=== PATIENT | female | born 1990 | race African-American/Black ===

== ENCOUNTER 2022-01-17 06:54 | Inpatient (IN) | payer BC ==
[2022-01-14 09:49] LABS: HEMATOCRIT 39.6 % (34.2-44.1); MEAN CORPUSCULAR HEMOGLOBIN 30.4 pg (28-32); MEAN CORPUSCULAR HGB CONC 32.8 g/dL (31-35); MEAN CORPUSCULAR VOLUME 92.7 fL (81-99); NEUTROPHILS % 53.3 % (38.7-80.0); PLATELET COUNT 278 x10e3/uL (140-360); RED BLOOD COUNT 4.27 x10e6/uL (3.6-5.1); RED CELL DISTRIBUTION WIDTH 12.9 % (11.7-14.4)
[2022-01-14 09:50] LABS: BASOPHILS % 0.4 % (0.0-1.0); EOSINOPHILS # (AUTO) 0.1 (0.0-0.4); EOSINOPHILS % 2.2 % (0.0-6.0); LYMPHOCYTES # (AUTO) 2.1 (1.0-3.2); LYMPHOCYTES % 38.9 % (18.0-39.1); MONOCYTES # (AUTO) 0.3 (0.2-0.8); MONOCYTES % 4.8 % (4.4-11.3); NEUTROPHILS # (AUTO) 2.9 (2.1-6.9)
[2022-01-17] VITALS (7 sets, daily range): BP systolic 143–146; BP diastolic 92–110
[~2022-01-17] VITALS: Ht 170.2 cm; Wt 176.0 kg
[~2022-01-17 06:54] MED LIST: SODIUM CHLORIDE 0.9% 50ML 100 ML ONE
[2022-01-17] MEDS ORDERED: BUPIVACAINE HCL 0.25% 10ML MPF VIAL INJ ONE (07:11)
[2022-01-17] MEDS ORDERED: FENTANYL CITRATE/PF 100MCG/2 ML INJ ONE (10:05)
[2022-01-17] MEDS ORDERED: LABETALOL HCL 0 ML ONE (10:10)
[2022-01-17] MEDS ORDERED: ONDANSETRON HCL INJ 2MG/ML 2ML 2 MG/ML VIAL ONE ×2 (10:14→13:17)
[2022-01-17] MEDS ORDERED: HYDROMORPHONE 1MG/1ML INJ ONE ×2 (10:32→10:53)
[2022-01-17] MEDS ORDERED: HYDRALAZINE HCL 20 MG/ML VIAL ONE (10:46)
[2022-01-17] MEDS ORDERED: HYDROCODONE/APAP 7.5MG-325MG 1 EA TAB PO PRN (11:30)
[2022-01-17] MEDS: LACTATED RINGER'S 1,000 ML INJ SCH ×2 (12:11→18:37)
[2022-01-17] MEDS: ONDANSETRON HCL INJ 2MG/ML 2ML 2 MG/ML VIAL IV PRN ×2 (12:11→18:11)
[2022-01-17] MEDS: Morphine 2mg Syringe 2 MG/ML SYR IV PRN ×6 (12:11→22:38)
[2022-01-17] MEDS ORDERED: SCOPOLAMINE 1.5 MG PATCH TOP ONE (12:30)
[2022-01-17] MEDS ORDERED: GLYCOPYRROLATE INJ 0.2 MG/ML VIAL ONE (13:17)
[2022-01-17] MEDS ORDERED: SUGAMMADEX SODIUM 200 MG/2 ML VIAL IV ONE (13:17)
[2022-01-17] MEDS ORDERED: ACETAMINOPHEN 1000 MG/100 ML IV ONE (13:17)
[2022-01-17] MEDS ORDERED: DEXAMETHASONE SOD PHOS INJ 4 MG/ML SDV ONE (13:17)
[2022-01-17] MEDS ORDERED: ROCURONIUM BROMIDE 10 MG/ML 5ML VIAL IV ONE (13:17)
[2022-01-17] MEDS ORDERED: SEVOFLURANE INHAL SOLN 250 ML PEN BTL ONE (13:17)
[2022-01-17] MEDS ORDERED: PROPOFOL IV EMULSION 10 MG/ML 20 ML VIAL ONE (13:17)
[2022-01-17] MEDS ORDERED: POVIDONE IODINE 0.05% 0.05 % ML PO ONE (13:17)
[2022-01-17] MEDS ORDERED: NEOSTIGMINE 1 MG/ML 10ML VIAL ONE (13:17)
[2022-01-17] MEDS ORDERED: LIDOCAINE HCL 2% LOCAL INJ 5 ML SDV VIAL INJ ONE (13:17)
[2022-01-17 14:24] LABS: BASOPHILS % 0.1 % (0.0-1.0); EOSINOPHILS % 0.1 % (0.0-6.0); HEMATOCRIT 40.6 % (34.2-44.1); HEMOGLOBIN 13.7 g/dL (12.0-16.0); LYMPHOCYTES # (AUTO) 0.7 (1.0-3.2); LYMPHOCYTES % 4.9 % (18.0-39.1); MEAN CORPUSCULAR HEMOGLOBIN 30.6 pg (28-32); MEAN CORPUSCULAR HGB CONC 33.7 g/dL (31-35); MEAN CORPUSCULAR VOLUME 90.6 fL (81-99); MONOCYTES # (AUTO) 0.1 (0.2-0.8); MONOCYTES % 0.5 % (4.4-11.3); NEUTROPHILS # (AUTO) 12.6 (2.1-6.9); NEUTROPHILS % 93.2 % (38.7-80.0); PLATELET COUNT 296 x10e3/uL (140-360); RED BLOOD COUNT 4.48 x10e6/uL (3.6-5.1)
[2022-01-17] MEDS ORDERED: ACETAMINOPHEN 325 MG TAB PO PRN ×2 (20:45→21:45)
[2022-01-17] MEDS ORDERED: ENOXAPARIN SOD INJ 40 MG/0.4 ML SYR SC SCH (22:00)
[2022-01-17] MEDS: ACETAMINOPHEN 325 MG TAB PO PRN ×2 (22:31→22:33)
[2022-01-18] VITALS: BP 147/90
[2022-01-18] MEDS: ONDANSETRON HCL INJ 2MG/ML 2ML 2 MG/ML VIAL IV PRN (02:21)
[2022-01-18] MEDS: LACTATED RINGER'S 1,000 ML INJ SCH (02:21)
[2022-01-18] MEDS: Morphine 2mg Syringe 2 MG/ML SYR IV PRN (02:21)
[2022-01-18] MEDS: ACETAMINOPHEN 325 MG TAB PO PRN (05:19)
[2022-01-18 05:39] LABS: BASOPHILS % 0.1 % (0.0-1.0); HEMATOCRIT 36.9 % (34.2-44.1); HEMOGLOBIN 12.6 g/dL (12.0-16.0); LYMPHOCYTES # (AUTO) 1.4 (1.0-3.2); LYMPHOCYTES % 13.3 % (18.0-39.1); MEAN CORPUSCULAR HEMOGLOBIN 30.5 pg (28-32); MEAN CORPUSCULAR HGB CONC 34.1 g/dL (31-35); MEAN CORPUSCULAR VOLUME 89.3 fL (81-99); MONOCYTES # (AUTO) 0.5 (0.2-0.8); MONOCYTES % 4.5 % (4.4-11.3); NEUTROPHILS # (AUTO) 8.3 (2.1-6.9); NEUTROPHILS % 81.5 % (38.7-80.0); PLATELET COUNT 296 x10e3/uL (140-360); RED BLOOD COUNT 4.13 x10e6/uL (3.6-5.1); RED CELL DISTRIBUTION WIDTH 12.7 % (11.7-14.4)
[2022-01-18 06:13] LABS: ALANINE AMINOTRANSFERASE 49 IU/L (0-55); ALBUMIN 3.5 g/dL (3.5-5.0); ALKALINE PHOSPHATASE 47 IU/L (40-150); ANION GAP 12.4 mmol/L (8-16); BLOOD UREA NITROGEN < 5 mg/dL (7-26); CALCIUM 8.9 mg/dL (8.4-10.2); CARBON DIOXIDE 25 mmol/L (22-29); CHLORIDE 103 mmol/L (98-107); CREATININE, SERUM 0.75 mg/dL (0.57-1.11); EST GLOMERULAR FILTRATION RATE 108 ML/MIN (60-); GLUCOSE 108 mg/dL (74-118); MAGNESIUM 1.7 MG/DL (1.3-2.1); POTASSIUM 3.4 mmol/L (3.5-5.1); SODIUM 137 mmol/L (136-145)
[2022-01-18 06:15] LABS: BUN/CREATININE RATIO 7 (6-25)
[2022-01-18 06:28] LABS: PHOSPHORUS 3.1 MG/DL (2.3-4.7)
[2022-01-18] MEDS ORDERED: POTASSIUM CHLORIDE 10MEQ EA PO ONE (06:30)
[2022-01-18] MEDS ORDERED: CLONIDINE HCL 0.1 MG TAB PO ONE (07:45)
[2022-01-18 08:01] VITALS: BP 147/100
== END 2022-01-18 09:52 | disposition home or self-care (01) | DRG 621 ==
LOC: OR 06:54 → PACU V 09:39 → MED/SURG 11:07
PROVIDERS: ADMIT Internal Medicine; ATTEND Internal Medicine
PROC: 0DB64Z3 Excision of Stomach, Percutaneous Endoscopic Approach, Vertical (ICD-10-PCS; principal; 2022-01-17 07:31)
DX: E66.01 Morbid (severe) obesity due to excess calories (principal); Z68.44 Body mass index [BMI] 60.0-69.9, adult; K76.0 Fatty (change of) liver, not elsewhere classified; I11.9 Hypertensive heart disease without heart failure; Z20.822 Contact with and (suspected) exposure to COVID-19
CPT/HCPCS: 36415; 80053; 81025; 83735; 84100; 85025; J0360; J0690; J1100; J1170; J1650; J2001; J2270; J2405; J2710; J3010; J7121; U0002

== ENCOUNTER 2022-10-27 20:28 | Emergency (ER) | payer BC ==
[~2022-10-27] VITALS: Ht 172.7 cm; Wt 158.8 kg
[2022-10-27] MEDS ORDERED: KETOROLAC TROMETHAMINE 30 MG/ML VIAL IV STA (21:18)
[2022-10-27] MEDS ORDERED: SODIUM CHLORIDE 0.9% 1000ML 1,000 ML IV SCH (21:30)
[2022-10-27] MEDS ORDERED: KETOROLAC TROMETHAMINE 30 MG/ML VIAL ONE (22:10)
[2022-10-27] MEDS ORDERED: SODIUM CHLORIDE 0.9% 1000ML 1,000 ML ONE (22:10)
[2022-10-27] MEDS ORDERED: DICYCLOMINE HCL20 MG PO (22:53)
[2022-10-27] MEDS ORDERED: NAPROSYN500 MG PO (22:53)
== END 2022-10-27 23:33 | disposition home or self-care (01) ==
LOC: FSED 20:37
DX: R19.7 Diarrhea, unspecified (principal); U07.1 COVID-19; R10.84 Generalized abdominal pain; E66.01 Morbid (severe) obesity due to excess calories; Z98.84 Bariatric surgery status
CPT/HCPCS: 80048; 80076; 80307; 81003; 81025; 85025; 99283; J1885; J7030

== ENCOUNTER 2023-01-20 11:50 | Emergency (ER) | payer BC, OTHER ==
[~2023-01-20] VITALS: Ht 170.2 cm; Wt 155.8 kg
[~2023-01-20 11:50] MED LIST changes: +DICYCLOMINE HCL20 MG PO; +NAPROSYN500 MG PO; -SODIUM CHLORIDE 0.9% 50ML 100 ML ONE
[2023-01-20] MEDS ORDERED: CEFTRIAXONE 1 GM VIAL IV ONE (14:00)
[2023-01-20] MEDS ORDERED: KETOROLAC TROMETHAMINE 30 MG/ML VIAL IV ONE (14:00)
[2023-01-20] MEDS ORDERED: ONDANSETRON ODT4 MG PO (14:04)
[2023-01-20] MEDS ORDERED: TYLENOL325 MG PO (14:04)
[2023-01-20] MEDS ORDERED: FAMOTIDINE20 MG PO (14:04)
[2023-01-20] MEDS ORDERED: CEFDINIR300 MG PO (14:04)
[2023-01-20] MEDS ORDERED: KETOROLAC TROMETHAMINE 30 MG/ML VIAL ONE (14:09)
[2023-01-20] MEDS ORDERED: CEFTRIAXONE 1 GM VIAL ONE (14:10)
== END 2023-01-20 15:27 | disposition home or self-care (01) ==
LOC: FSED 12:08
DX: O03.9 Complete or unspecified spontaneous abortion without complication (principal); N39.0 Urinary tract infection, site not specified; R50.9 Fever, unspecified
CPT/HCPCS: 36415; 76801; 80053; 81003; 81025; 84702; 85025; 99284; J0696; J1885

== ENCOUNTER 2024-08-17 06:59 | Emergency (ER) | payer OTHER ==
[~2024-08-17] VITALS: Ht 172.7 cm; Wt 163.7 kg
[~2024-08-17 06:59] MED LIST changes: +CEFDINIR300 MG PO; +FAMOTIDINE20 MG PO; +ONDANSETRON ODT4 MG PO; +TYLENOL325 MG PO
[2024-08-17] MEDS ORDERED: AMOXICILLIN500 MG PO (08:07)
[2024-08-17] MEDS: AMOXICILLIN/CLAVULANATE K 875 MG TAB PO STA (08:18)
[2024-08-17] MEDS: AMOXICILLIN/CLAVULANATE K 875 MG TAB PO ONE (08:18)
[2024-08-17 08:22] VITALS: PULSE 91; RESP 18; TEMP 98.4; O2SAT 100
== END 2024-08-17 08:27 | disposition home or self-care (01) ==
LOC: FSED 07:24
DX: R53.81 Other malaise (principal); J02.0 Streptococcal pharyngitis; E66.9 Obesity, unspecified; Z11.52 Encounter for screening for COVID-19; Z98.84 Bariatric surgery status
CPT/HCPCS: 0223U; 83518; 86308; 87400; 99283